=== PATIENT | male | born 1955 | race Caucasian/White ===

== ENCOUNTER 2017-08-20 09:33 | Emergency (ER) | payer BC ==
[2017-08-20 10:09] VITALS: BP 147/76
--- NOTE | 2017-08-20 10:29 | UC ---
Skin Complaint HPI - HPI Summary HPI Summary: 61 yo male noted tick on neck this am may have been attached 36 hours - History of Current Complaint Chief Complaint: UCSkin Time Seen by Provider: 08/20/17 10:16 Stated Complaint: TICK Hx Obtained From: Patient Onset/Duration: Sudden Onset Timing: Constant Onset Severity: Mild Current Severity: None Pain Intensity: 0 Pain Scale Used: 0-10 Numeric Location: Other - left neck Character: Redness Alleviating Factor(s): Nothing Related History: Insect Bite/Sting - Allergy/Home Medications Allergies/Adverse Reactions: Allergies Allergy/AdvReac Type Severity Reaction Status Date / Time Benzodiazepines Allergy Anaphylatic Verified 08/20/17 10:04 Shock Home Medications: Home Medications Lenalidomide(NF) [Revlimid (NF)] 10 mg PO DAILY 08/20/17 [History Confirmed ] Review of Systems Constitutional: Negative Skin: Negative Eyes: Negative ENT: Negative Respiratory: Negative Cardiovascular: Negative Gastrointestinal: Negative Genitourinary: Negative Motor: Negative Neurovascular: Negative Musculoskeletal: Negative Neurological: Negative Psychological: Negative Is Patient Immunocompromised?: No All Other Systems Reviewed And Are Negative: Yes PMH/Surg Hx/FS Hx/Imm Hx Previously Healthy: No - multiple myeloma - Surgical History Surgical History: Yes Surgery Procedure, Year, and Place: eye surgery age 2 CORRECTIVE SX - Family History Known Family History: Positive: Hypertension - Social History Alcohol Use: Occasionally Substance Use Type: None Smoking Status (MU): Never Smoked Tobacco Have You Smoked in the Last Year: No - Immunization History Most Recent Tetanus Shot: not sure Physical Exam Triage Information Reviewed: Yes Appearance: Well-Appearing, No Pain Distress, Well-Nourished Vital Signs: Initial Vital Signs Temp 98.0 F 08/20/17 10:06 Pulse 51 08/20/17 10:06 Resp 16 08/20/17 10:06 BP 147/76 08/20/17 10:06 Pulse Ox 100 08/20/17 10:06 Vital Signs Reviewed: Yes Eyes: Positive: Conjunctiva Clear ENT: Negative: Hearing grossly normal, Nasal congestion, Nasal drainage, Tonsillar exudate, Trismus, Muffled/hoarse voice Neck: Positive: Supple, Nontender, No Lymphadenopathy Respiratory: Positive: Lungs clear, Normal breath sounds, No respiratory distress Cardiovascular: Positive: RRR, No Murmur Skin Exam: Other - see image Course/Dx - Course Course Of Treatment: tick removed in toto with tick twister - Diagnoses Provider Diagnoses: tick removal Discharge - Discharge Plan Condition: Stable Disposition: HOME Prescriptions: DOXYcycline CAP(*) [DOXYcycline 100MG CAP(*)] 200 mg PO DAILY #2 cap Patient Education Materials: Tick Bite (ED) Referrals: Alivia Segovia MOLD SWABBER [Primary Care Provider] - If Needed Additional Instructions: take two doxy today with lunch call fro any questions return for any problems Images Head: 1 - tick
== END 2017-08-20 10:29 | disposition home or self-care (01) ==
LOC: UCEAST 09:33
DX: S10.96XA Insect bite of unspecified part of neck, initial encounter (principal); W57.XXXA Bitten or stung by nonvenomous insect and other nonvenomous arthropods, initial encounter; Y92.9 Unspecified place or not applicable; C90.00 Multiple myeloma not having achieved remission
CPT/HCPCS: 99212; G0463

== ENCOUNTER 2019-01-06 17:12 | Inpatient (IN) | payer MEDICARE ==
[2019-01-06] MEDS ORDERED: LORazepam INJ* 2 MG/ML 1 ML VIAL IV PUSH PRN (17:19)
[2019-01-06] MEDS ORDERED: Morphine INJ* 2 MG/ML 1 ML SYRINGE (TWO MG - NEW SYRINGE VERSION) IV PRN (17:19)
[2019-01-06] MEDS ORDERED: Ondansetron INJ* 2 MG/ML VIAL IV PRN (17:19)
[2019-01-06] MEDS ORDERED: Acetaminophen TAB* 325 MG PO PRN (17:19)
[2019-01-06] MEDS ORDERED: Hyoscyamine TAB* 0.125 MG PO PRN ×2 (17:23→17:53)
[2019-01-06] MEDS ORDERED: NS 0.9% 1000 ML** 1,000 ML IV SCH (17:30)
[2019-01-06] MEDS: Pantoprazole IV* 40 MG IV SCH (19:49)
[2019-01-06] MEDS ORDERED: Morphine VIAL* 4 MG/ML VIAL (1 ml vial) IV PRN (20:20)
[2019-01-06] MEDS: Enoxaparin(*) 40 MG/0.4 ML SYR SUBCUT SCH (22:18)
[2019-01-06] MEDS: Acyclovir* 400 MG TAB PO SCH (22:18)
[2019-01-06] MEDS ORDERED: Ibuprofen TAB* 400 MG PO PRN (22:25)
[2019-01-06] MEDS ORDERED: diPHENhydraMINE IV* 50 MG/ML 1 ml VIAL (BENADRYL) IV ONE (22:25)
[2019-01-06] MEDS ORDERED: Ibuprofen TAB* 400 MG ONE (22:54)
[2019-01-07] MEDS: HYDROmorphone INJ1* 1 MG/ML SYRINGE IV PRN ×4 (00:26→09:00)
[2019-01-07] MEDS: Cholecalciferol TAB* 1000 UNITS PO SCH (07:12)
[2019-01-07] MEDS: Acyclovir* 400 MG TAB PO SCH (07:12)
[2019-01-07] MEDS: Aspirin 81 mg CHEW TAB* 81 MG TAB.CHEW PO SCH (07:12)
[2019-01-07 08:22] LABS: Hematocrit 34 % (42-52); Hemoglobin 11.4 g/dl (14.0-18.0); Mean Corpuscular HGB Conc 34 g/dl (31-36); Mean Corpuscular Hemoglobin 32 pg (27-31); Mean Corpuscular Volume 96 fL (80-94); Red Blood Count 3.53 10^6/ul (4.00-5.40); Red Cell Distribution Width 15 % (10.5-15); White Blood Count 1.1 10^3/ul (3.5-10.8)
[2019-01-07 08:29] LABS: Albumin 3.9 g/dL (3.2-5.2); Albumin/Globulin Ratio 1.4 (1-3); BUN/Creatinine Ratio 14.9 (8-20); Calcium 8.4 mg/dL (8.6-10.3); EGFR African American 106.6 (>60); EGFR Non-African American 88.1 (>60); Globulin 2.7 g/dL (2-4); Potassium 3.9 mmol/L (3.5-5.0); Total Bilirubin 0.8 mg/dL (0.2-1.0); Total Protein 6.6 g/dL (6.4-8.9)
--- NOTE | 2019-01-07 08:42 | PN ---
Progress Note - Progress Note Date of Service: 01/07/19 SOAP: Subjective: []Developed acute RUQ abdominal pain and epigastric pain 3/. Pain sever, constant but variable. Can be helped by correct possition but movment does not make better or worse. Has had nausea and not eating. Did eat some oats 3 days ago and pain did not get worse. No vomiting. Pain does not radiate, has had mild back pain that is chronic. See in clinc on 01/06. US of Abd negative, LFTs with mild increase in AST, otherwise negative, normal amylase and lipase. Developed diffuse rash last night. Trunk > Ext, puritic. Acetaminophen (Tylenol Tab*) 650 mg PO Q4H PRN PRN Reason: PAIN OR TEMPERATURE Acyclovir (Zovirax Tab*) 400 mg PO BID [facility] Last Admin: 01/07/19 07:12 Dose: 400 mg Aspirin (Aspirin 81 Mg Chew Tab*) 81 mg PO DAILY [facility] Last Admin: 01/07/19 07:12 Dose: 81 mg Cholecalciferol (Vitamin D Tab*) 5,000 units PO DAILY [facility] Last Admin: 01/07/19 07:12 Dose: 5,000 units Enoxaparin Sodium (Lovenox(*)) 40 mg SUBCUT Q24H [facility] Last Admin: 01/06/19 22:18 Dose: 40 mg Hydromorphone HCl (Dilaudid Inj1s*) 1 mg IV Q1H PRN PRN Reason: PAIN Last Admin: 01/07/19 07:12 Dose: 1 mg Hyoscyamine (Anaspaz Tab*) 0.125 mg PO Q4H PRN PRN Reason: abd. spasms/cramping Last Admin: 01/07/19 00:27 Dose: 0.125 mg Sodium Chloride (Ns 0.9% 1000 Ml) 1,000 mls @ 100 mls/hr IV PER RATE [facility] Last Admin: 01/07/19 01:04 Dose: 100 mls/hr Ibuprofen (Motrin Tab*) 400 mg PO Q6H PRN PRN Reason: PAIN Last Admin: 01/06/19 23:10 Dose: 400 mg Morphine Sulfate (Morphine Inj ((Syringe))*) 2 mg IV Q2H PRN PRN Reason: PAIN Last Admin: 01/06/19 19:48 Dose: 2 mg Morphine Sulfate (Morphine Vial*) 3 mg IV Q1H PRN PRN Reason: PAIN Last Admin: 01/06/19 22:13 Dose: 3 mg Ondansetron HCl (Zofran Inj*) 4 mg IV Q4H PRN PRN Reason: NAUSEA Pantoprazole Sodium (Protonix Iv*) 40 mg IV Q24H [facility] Last Admin: 01/06/19 19:49 Dose: 40 mg Objective: [] Vital Signs Temp Pulse Resp BP Pulse Ox 98.3 F 49 18 146/65 100 01/07/19 02:22 01/07/19 02:22 01/07/19 07:12 01/07/19 02:22 01/07/19 02:22 HEENT: OM moist and no lesions Skin: diffuse paullar rash trunk, sparing OM, hands and feet. Puritic. CTA RRR S1S2 Has pain to deep palpation RUQ and epigastric, No HSM. + BS Ext - No C/C/E AST 57, WBC 1.1, diff pending Assessment: []63 year old with MM on maintenance Revlimid with acute abdominal pain, epigastric to RUQ and now a rash. He is a-fibrile and evaluation negative for significant disease in GB, liver or pancreas. Ddx: acute gastritis or ulcer, naturopathic from spinal stenosis or fracture not seen on CT scan, viral illness with rash and pain preceding hepatitis, does not appear to be shingles. Ddx for rash aside from pain is drug rash, viral. Plan: []1. Pain. Responding to dilaudid, will change to PO 8 mg po q 4 hrs from IV and for now continue Tylenol and Motrin. If EGD negative then MRI of spine. 2. Consult GI for EGD, if negative can try Toradol for pain and NSAIDS. Follow LFTs daily and re-check lipase tomorrow. 3. Rash. Follow and if worsens will need to stop Dilaudid as well, has tolerated oxycodone in the past. Can consider Bx if viral illness suspected. 4. Hold therapy MM.
[2019-01-07] MEDS ORDERED: diPHENhydraMINE PO* 25 MG PO PRN (08:56)
[2019-01-07 09:40] LABS: ABS Basophils 0 10^3/ul (0-0.2); ABS Eosinophils 0 10^3/ul (0-0.6); ABS Lymphocytes 0.2 10^3/ul (1.0-4.8); ABS Monocytes 0.2 10^3/ul (0-0.8); ABS Neutrophils 0.7 10^3/ul (1.5-7.7); ABS Nucleated RBC 0 10^3/ul; Eosinophil % 1.6 %; Nucleated Red Blood Cells % 0.4
[2019-01-07 10:01] LABS: Mean Platelet Volume 8.1 fL (7.4-10.4); Platelet Count 58 10^3/ul (150-450)
[2019-01-07] MEDS: HYDROmorphone TAB* 4 MG PO PRN ×2 (10:01→12:31)
[2019-01-07] MEDS ORDERED: EPINEPHRINE 1 MG/ML 1 ML VIAL IM PRN (13:26)
[2019-01-07] MEDS ORDERED: Midazolam* 1 MG/ML 2 ML VIAL (2 MG) IV SLOW PU ONE (13:26)
[2019-01-07] MEDS ORDERED: diPHENhydraMINE IV* 25 MG in NS 0.9% 50 ML* 50 ML IVPB ONE (13:30)
[2019-01-07] MEDS ORDERED: diPHENhydraMINE IV* 50 MG/ML 1 ml VIAL (BENADRYL) IV ONE (14:00)
--- NOTE | 2019-01-07 14:19 | CONS ---
GASTROENTEROLOGY CONSULT: DATE: 01/07/19 CONSULTING PHYSICIAN: Daisy Casillas. REASON FOR CONSULTATION: Epigastric and right upper quadrant pain beginning 3 days ago with nondiagnostic CT and ultrasound. HISTORY: This 63-year-old man, on daily maintenance Revlimid for multiple myeloma after a bone marrow transplant performed in 2017, was admitted with intractable right upper quadrant pain yesterday from the oncology office. He is a difficult historian, skipping around frequently in the history to associated thoughts to a question without having fully addressed the question. He observes initially that he has been burping for a number of weeks several times a day. He denied acid indigestion per se and was not taking Tums or Rolaids or any other [id number] anti-peptic aid. He has never been treated for such. He has never had an upper endoscopy. He recalls he fell on 12/30/18, and hurt his left posterior ribs. He said it was not very severe and he was not taking any ibuprofen, but he did see a chiropractor. He says he cannot recall whether he played tennis per his usual pattern the rest that week - tennis games 2 to 4 times a week. His recollection is that on 01/03/19, he was in his usual health, eating normally, and had normal bowel movements. The same was true 01/04/19. He does recall that his 12 to 14 supplements seemed to just "sit there like a rock" when he took them Sunday. He has been on same number of supplements for quite some time. He had a bagel Sunday. He just was not feeling well in the evening and a friend recommended he take some Gas-X. He is not sure if he took any ibuprofen and indeed questions trying to pin that down, never accomplished that. He had essentially nothing to eat 01/05/19, after a restless night. In the evening of 01/05/19, he took some oxycodone. He tried to make himself vomit. There was no fever. There was no diarrhea. He came to the [facility] yesterday and was admitted. He is kind of restless trying to find a good position. Different positions do seem to satisfy him temporarily. He says that deep breathing hurts somewhat, but there has been no particular cough or pleurisy reproducibly. Again, he says he has never been evaluated for a peptic process. PAST MEDICAL HISTORY: 1. Multiple myeloma with multiple bony lesions. 2. Pancytopenia. 3. Multiple supplements - this includes aspirin 81 mg started in late 2015. MEDICATIONS: As an outpatient: 1. Aspirin 81 mg. 2. Magnesium capsule frequently. 3. Revlimid 10 mg. 4. Vitamin B12. 5. Oxycodone and OxyContin p.r.n. 6. Ibuprofen 200 mg 1 to 2 tablets p.r.n. q.6 hours, frequency not established. 7. Seven or eight other dietary supplements. SOCIAL HISTORY: He is single, worked as a massage therapist, but has not been doing that much recently. REVIEW OF SYSTEMS: No history of seizure, syncope, palpitations, MS, valvular disease, congestive failure, TB, hemoptysis, hepatitis, jaundice. Couple of years ago, he was suffering from depression and [facility] and was given lorazepam, strength uncertain and he recalls taking a half tablet and within minutes, he was afflicted by shortness of breath. He refers to this as "anaphylactic shock." He was severely short of breath for about an hour and then affected for a few days. He did not seek any attention stating he could not have driven. He did not call 911. Ever since, he has referred to this as anaphylactic shock and it has entered the record as an allergy. He had a colonoscopy [place] [address] Snider using Versed 5 mg and fentanyl 50 mcg with no difficulty whatsoever. He is a lifetime nonsmoker. PHYSICAL EXAM: He is a slender, anxious-appearing man, somewhat restless, seeking a position in bed for comfort. HEENT exam is remarkable only for several days' growth of jolley. He is anicteric. Mucous membranes are normal. He has no adenopathy. Breath sounds are diminished as he has some voluntary inhibition. Heart sounds are regular. When positioned flat (after a considerable wrestle since maneuvering), the abdomen is of average contour, symmetric, with normal bowel sounds in all 4 quadrants. The abdomen is nontender, although he is wincing, jumping, lying and then saying "that wasn't that bad." Rectal: Deferred. Extremities show no edema. He has been afebrile. LABS: White count 1.4 yesterday, LFTs normal, albumin 4.1. Electrolytes normal. BUN 12, creatinine 1.01. RADIOLOGY REVIEW: CT scan shows fairly enlarged gallbladder without thickening , splenic lesions, no fluid in the abdomen and no adenopathy. IMPRESSION: This 63-year-old man with multiple myeloma, on chronic oral chemo, complains of a right upper quadrant to back area pain that seems in some ways mechanical, although he has been inhibited from eating and there has been a lot of burping over several weeks. His NSAID use may be considerable. Upper endoscopy could be helpful looking at the EG junction or peripyloric area. His history of a benzodiazepine reaction is very atypical and would be most compatible with a panic attack, though under the current circumstances, initiating a process where bronchoconstriction could be present would be highly disruptive to his care. Anesthesia assistance will be requested. Addendum: further discussion with his primary team - will try a test dose of Versed [id number]/[facility] #: [id number] MTDD
[2019-01-07] MEDS ORDERED: Midazolam* 1 MG/ML 5 ML VIAL (5 MG) ONE (14:20)
[2019-01-07] MEDS ORDERED: fentaNYL* 50 MCG/ML 2 ML VIAL (100 MCG VIAL) ONE (14:20)
[2019-01-07] MEDS: Acetaminophen TAB* 325 MG PO PRN (16:13)
--- NOTE | 2019-01-07 17:11 | PN ---
Progress Note - Progress Note Date of Service: 01/07/19 SOAP: PM FOLLOW UP NOTE Events: - EGD mild gastritis, not cause of pain per GI - Fever to 103.0 at EGD, rash increased Subjective: []Feels better. Pain has been getting better. Acetaminophen (Tylenol Tab*) 650 mg PO Q4H PRN PRN Reason: PAIN OR TEMPERATURE Last Admin: 01/07/19 16:13 Dose: 650 mg Acyclovir (Zovirax Tab*) 400 mg PO BID [facility] Last Admin: 01/07/19 07:12 Dose: 400 mg Aspirin (Aspirin 81 Mg Chew Tab*) 81 mg PO DAILY [facility] Last Admin: 01/07/19 07:12 Dose: 81 mg Cholecalciferol (Vitamin D Tab*) 5,000 units PO DAILY [facility] Last Admin: 01/07/19 07:12 Dose: 5,000 units Diphenhydramine HCl (Benadryl Po*) 25 mg PO Q6H PRN PRN Reason: ITCHING Enoxaparin Sodium (Lovenox(*)) 40 mg SUBCUT Q24H [facility] Last Admin: 01/06/19 22:18 Dose: 40 mg Hydromorphone HCl (Dilaudid Inj1s*) 1 mg IV Q1H PRN PRN Reason: PAIN Last Admin: 01/07/19 09:00 Dose: 1 mg Hydromorphone HCl (Dilaudid Tab*) 4 mg PO Q2H PRN PRN Reason: PAIN Last Admin: 01/07/19 12:31 Dose: 4 mg Hyoscyamine (Anaspaz Tab*) 0.125 mg PO Q4H PRN PRN Reason: abd. spasms/cramping Last Admin: 01/07/19 00:27 Dose: 0.125 mg Sodium Chloride (Ns 0.9% 1000 Ml) 1,000 mls @ 100 mls/hr IV PER RATE [facility] Last Admin: 01/07/19 01:04 Dose: 100 mls/hr Ibuprofen (Motrin Tab*) 400 mg PO Q6H PRN PRN Reason: PAIN Last Admin: 01/06/19 23:10 Dose: 400 mg Ketorolac Tromethamine (Toradol Inj*) 15 mg IV PUSH Q6H PRN PRN Reason: PAIN Morphine Sulfate (Morphine Inj ((Syringe))*) 2 mg IV Q2H PRN PRN Reason: PAIN Last Admin: 01/06/19 19:48 Dose: 2 mg Ondansetron HCl (Zofran Inj*) 4 mg IV Q4H PRN PRN Reason: NAUSEA Pantoprazole Sodium (Protonix Iv*) 40 mg IV Q24H [facility] Last Admin: 01/06/19 19:49 Dose: 40 mg Objective: [] Vital Signs Temp Pulse Resp BP Pulse Ox 98.4 F 64 16 163/65 100 01/07/19 11:18 01/07/19 11:26 01/07/19 12:34 01/07/19 11:26 01/07/19 11:18 Rash progressive, lesions on neck and through scalp. Assessment: []Progressive rash and fever. Ddx remains infection vs drug reaction, favoring the former. Pain may have been transient GB obstruction. Plan: []1. Will seed BC x 2 2. Could be HSV, will start Valtrex 100 mg po bid and stop Acyclovir. 3. Consult GI in am 4. D/c all narcotics, Toradol for pain and continued IV PPI. 5. Regular diet and D/C IVF
[2019-01-07] MEDS ORDERED: Ketorolac INJ* 15 MG/ML 1 ML VIAL IV PUSH PRN (17:12)
[2019-01-07] MEDS: Ketorolac INJ* 15 MG/ML 1 ML VIAL IV PUSH PRN (17:38)
[2019-01-07] MEDS: Pantoprazole IV* 40 MG IV SCH (17:39)
[2019-01-07] MEDS: Enoxaparin(*) 40 MG/0.4 ML SYR SUBCUT SCH (17:39)
[2019-01-07] MEDS: oxyCODONE TAB* 5 MG TAB PO PRN ×2 (19:01→23:08)
[2019-01-08] MEDS: oxyCODONE TAB* 5 MG TAB PO PRN ×4 (03:15→17:34)
[2019-01-08] MEDS: Acetaminophen TAB* 325 MG PO PRN (03:36)
--- NOTE | 2019-01-08 03:38 | PRO ---
DATE: 01/07/19 - ROOM #404 REFERRING PHYSICIAN: Dr. Daisy Anna; Dr. Ward Allen. * PROCEDURE: Upper gastrointestinal endoscopy and biopsy, distal esophageal erosion at 39 cm, and CLOtest, gastric body. INDICATION: This 63-year-old man complains of right upper quadrant pain for the last 2 days. He became anorectic. He tried to make himself vomit wondering if that would help but it did not. He had not had any fever until this afternoon, when he went to a 103.5. He has not had prior acid peptic disease. See separate consultation. Multiple conversations were held with his nurse on the floor, Dr. Allen and Endo staff, related to his initially reporting that he had anaphylactic shock with the benzodiazepine. Since this had been a reaction to an oral dose of an antianxiety medicine prescribed by the [facility], and he had just 2 years before had a standard conscious sedation experience for colonoscopy, seemed unlikely. Nonetheless, the risks of major event seemed enough reason to pause and reevaluate the indication. With increasing fever and a spreading rash, clarifying information with an upper endoscopy was judged to be worth it. ENDOSCOPIST: Dr. Henley. MEDICATIONS: Midazolam 3 in small increments and fentanyl 75. FINDINGS: He was positioned left side down. He had a morbilliform rash minimally palpable over the abdomen, trunk, back, neck, face and scalp. There was no oozing. Sequential doses of medications starting at 0.25 mg midazolam then a 0.50 mg repeated several times were used and he sedated quite nicely. There were no ill effects. EGD: Larynx - appears normal, although there was a minimal small light patch of exudate near the cricopharyngeus. There was no erythema. It appeared consistent with maybe minimal . Esophagus - easily entered. The mucosa is normal from 17 to the upper, mid and lower esophagus. There was a small erosion with a white exudate at around 39 to 40 at a 2 o'clock orientation. It appeared consistent with a caustic vocal injury, fairly minimal. It was not a generalized esophagitis of any typical sort. There was no hiatal hernia, no fundic prolapse. The erosion was biopsied x2. Stomach - some minimal wispy bleeding points in the high gastric body, posterior wall. A few minimal fundic gland appearing polyps. Gastric cardia, fundus and body otherwise appeared normal. The rugal pattern was normal. The antrum was normal except in the prepyloric area where there was some granular erythema and swelling and a small focal ulcer at 11 o'clock orientation about 2 to 3 cm from the pylorus. A slightly broader but similar appearing ulcer was seen at 2 o'clock orientation. A CLOtest was taken, gastric body. Duodenum - the pylorus itself, bulb and second through fourth portions appeared normal. IMPRESSION: 1. Prepyloric ulcers - small, consistent with his ibuprofen use for tennis and headaches, etc. These were small, would not be expected to resolve in his clinical presentation of agonizing intractable pain. 2. Minimal gastric body gastritis - nonspecific probably related to multiple meds. 3. Esophageal erosion - small possibly related to transient nonpassage of a medication. This also does not appear opportunistic or potentially responsible for his dramatic clinical presentation. 4. Generalized upper body rash - its worsening nature over the day has been communicated to his primary team. [id number]/[facility] #: [id number] IZABELA
[2019-01-08 05:32] LABS: ABS Basophils 0 10^3/ul (0-0.2); ABS Eosinophils 0 10^3/ul (0-0.6); ABS Lymphocytes 0.3 10^3/ul (1.0-4.8); ABS Monocytes 0.2 10^3/ul (0-0.8); ABS Neutrophils 0.6 10^3/ul (1.5-7.7); ABS Nucleated RBC 0 10^3/ul; Eosinophil % 0.3 %; Hematocrit 30 % (42-52); Hemoglobin 10.1 g/dl (14.0-18.0); Lymphocyte % 25.6 %; Mean Corpuscular HGB Conc 34 g/dl (31-36); Mean Corpuscular Hemoglobin 32 pg (27-31); Mean Corpuscular Volume 94 fL (80-94); Mean Platelet Volume 8.2 fL (7.4-10.4); Nucleated Red Blood Cells % 0.6; Platelet Count 50 10^3/ul (150-450); Red Blood Count 3.16 10^6/ul (4.00-5.40); Red Cell Distribution Width 15 % (10.5-15); White Blood Count 1.1 10^3/ul (3.5-10.8)
[2019-01-08 05:43] LABS: Albumin 3.1 g/dL (3.2-5.2); Albumin/Globulin Ratio 1.3 (1-3); BUN/Creatinine Ratio 15.2 (8-20); Calcium 7.7 mg/dL (8.6-10.3); EGFR African American 99.9 (>60); EGFR Non-African American 82.6 (>60); Globulin 2.3 g/dL (2-4); Magnesium 1.8 mg/dL (1.9-2.7); Potassium 3.3 mmol/L (3.5-5.0); Total Bilirubin 0.5 mg/dL (0.2-1.0); Total Protein 5.4 g/dL (6.4-8.9)
[2019-01-08] MEDS: Aspirin 81 mg CHEW TAB* 81 MG TAB.CHEW PO SCH (07:10)
[2019-01-08] MEDS: Cholecalciferol TAB* 1000 UNITS PO SCH (07:10)
[2019-01-08] MEDS: Ketorolac INJ* 15 MG/ML 1 ML VIAL IV PUSH PRN (08:52)
[2019-01-08] MEDS ORDERED: Potassium Chlor TAB* 20 MEQ TAB.ER PO ONE (11:03)
[2019-01-08] MEDS ORDERED: Gadoteridol* (CONTRAST) 279.3 MG/ML 10 ML IV ONE (16:22)
[2019-01-08] MEDS: Pantoprazole IV* 40 MG IV SCH (17:29)
[2019-01-09] MEDS: oxyCODONE TAB* 5 MG TAB PO PRN ×3 (01:20→11:05)
[2019-01-09] MEDS: Cholecalciferol TAB* 1000 UNITS PO SCH (07:35)
[2019-01-09] MEDS: Aspirin 81 mg CHEW TAB* 81 MG TAB.CHEW PO SCH (07:35)
[2019-01-09 08:48] LABS: Hematocrit 31 % (42-52); Hemoglobin 10.3 g/dl (14.0-18.0); Mean Corpuscular HGB Conc 34 g/dl (31-36); Mean Corpuscular Hemoglobin 32 pg (27-31); Mean Corpuscular Volume 95 fL (80-94); Mean Platelet Volume 8.3 fL (7.4-10.4); Platelet Count 54 10^3/ul (150-450); Red Blood Count 3.25 10^6/ul (4.00-5.40); Red Cell Distribution Width 15 % (10.5-15); White Blood Count 1.9 10^3/ul (3.5-10.8)
[2019-01-09 09:11] LABS: BUN/Creatinine Ratio 12.9 (8-20); Calcium 8.1 mg/dL (8.6-10.3); EGFR African American 109.5 (>60); EGFR Non-African American 90.5 (>60); Potassium 3.7 mmol/L (3.5-5.0)
[2019-01-09 10:00] LABS: Lymphocytes % 18 %; Monocytes % 26 %; Neutrophil % 51 %
[2019-01-09 10:01] LABS: Immature Granulocytes 2 % (0-9); Variant Lymph % 2 % (0-6)
[2019-01-09 10:03] LABS: ABS Eosinophils 0.02 10^3/ul (0-0.6)
[2019-01-09 11:18] VITALS: BP 118/70
--- NOTE | 2019-01-09 12:58 | DS ---
- Discharge Summary Admission Date: 01/06/19 Discharge Date: 01/09/19 Discharge Date: 1. Right upper quadrant pain: controlled at this time, however source remains unclear, further work-up to occur as outpatient 2. Myeloma: stable lytic lesions on MRI, light chains drawn, counts appear to have improved so will hold on bone marrow biopsy for now Discharge Medications: Medication Instructions Recorded Confirmed Type Acyclovir* [Zovirax 400 MG TAB*] 400 mg PO BID 06/06/16 01/06/19 History Aspirin 81 mg CHEW TAB* 81 mg PO DAILY 01/06/19 01/06/19 History Astragalus Root 1 gm MC DAILY 01/06/19 01/06/19 History Cholecalciferol (Vitamin D3) 5,000 unit PO DAILY 01/06/19 01/06/19 History [Vitamin D3] Docosahexanoic Acid [Dha] 100 mg PO DAILY 01/06/19 01/06/19 History Glutathione 1 gm MC DAILY 01/06/19 01/06/19 History Magnesium Oxide [Magnesium] 400 mg PO DAILY 01/06/19 01/06/19 History Prochlorperazine TAB* [Compazine 10 mg PO Q6H PRN 01/06/19 01/06/19 History Tab*] Acetaminophen TAB* [Tylenol TAB*] 650 mg PO Q4H PRN #0 tab 01/09/19 Rx Acetylcysteine [Nac] 600 mg PO SEE INSTRUCTIONS #0 01/09/19 01/06/19 Rx Hyoscyamine TAB* [Anaspaz 0.125 MG 0.125 mg PO Q4H PRN #18 tab 01/09/19 Rx TAB*] Ibuprofen TAB* [Advil TAB*] 200 mg PO Q6H PRN #0 01/09/19 01/06/19 Rx Lenalidomide [Revlimid] 10 mg PO DAILY #28 capsule 01/09/19 History Omeprazole 40 mg PO DAILY #30 capsule. 01/09/19 Rx Ondansetron TAB* [Zofran 4 MG Tab*] 4 mg PO Q4HR PRN #0 01/09/19 01/06/19 Rx diPHENhydraMINE PO* [Benadryl PO 25 mg PO Q6H PRN tab 01/09/19 Rx 25 MG TAB*] oxyCODONE TAB* [Roxycodone TAB 5 10 mg PO Q3H PRN #80 tab MDD 16 01/09/19 Rx mg*] tabs Hospital Course: Please see admission note for full H&P, however briefly, Mr. 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 He has been on maintenance Revlimid since 06/2017 in very good health. Mr. Staley presented to the office on 01/06/19 complaining of progressive and severe RUQ abd. pain. He had poor PO intake and was evaluated with CT abd/pelvis. This revealed an elarged gallbladder without wall thickening, or bile duct enlargement. Surgical consultation over the phone was obtained and an US was recommened. RUQ US revealed gallbladder cysts without evidence for infection and a prominent pancreatic duct. Mr. Staley was neutropenic and while he did experience and isolated fever at home he did not appear toxic, however his pain was not controlled and therefore he was admitted to the hospital for observation with bowel rest. The AM he developed a rash that was felt related to IV morphine, this was d/c'd and he was given IV dilaudid. On 01/07 his pain remained poorly controlled and GI was consulted for EGD, this was performed that day and this revealed only mild gastritis. His rash become more severe and the dilaudid was discontinued and replaced of IV Toradol. A HIDA scan was ordered, this was performed on 01/08 and revealed a normal gallbladder. Due to his location of pain and known prior lytic lesions MRI of the T and L spine were obtained, while these revealed lytic lesions they are not new and very consistent with known lesions. Light chains and protein electrophoresis were obtained and are pending. His counts have recovered with ANC now 1000, however discussion of possible bone marrow biopsy as an outpatient was had. During his admission he had a fever 01/07 and in the early AM 01/08, though without evidence for infection and no antibiotics were given. He continues to state besides the spastic right upper quadrant pain (which has improved) he feels normal. Today his pain appears mostly controlled with oral oxycodone and he has tolerated PO intake. He is anxious to go home and with improvement in counts and improved pain control he will be discharged home. He is stable at the time of discharge. He will resume normal activities and a regular diet with no restrictions. Mr. Staley will follow-up with Dr. Hendricks on 01/21 and will contact his transplant doctor in [place], Dr. Angel, for follow-up at his convenience. >40 min spent with >50% face to face counseling
[2019-01-09] MEDS: Ketorolac INJ* 15 MG/ML 1 ML VIAL IV PUSH PRN (13:09)
[2019-01-10 21:23] LABS: Lambda Free Light Chain 1.38 mg/dL
[2019-01-13 09:20] LABS: Albumin 2.8 g/dL (3.4-4.7); Albumin/Globulin Ratio 1.04; Gamma Globulin 0.8 g/dL (0.6-1.6); Total Protein(PEP) 5.4 g/dL (6.3 - 7.9)
== END 2019-01-09 13:45 | disposition home or self-care (01) | DRG 392 ==
LOC: MED 17:43 → OBSVTOIN 01-07 17:51
PROVIDERS: ADMIT Internal Medicine Hematology & Oncology; ATTEND Internal Medicine Hematology & Oncology
PROC: 0DD68ZX Extraction of Stomach, Via Natural or Artificial Opening Endoscopic, Diagnostic (ICD-10-PCS; principal; 2019-01-07)
DX: R10.11 Right upper quadrant pain (principal); C90.00 Multiple myeloma not having achieved remission; D61.818 Other pancytopenia; Z94.81 Bone marrow transplant status; K22.10 Ulcer of esophagus without bleeding; L27.1 Localized skin eruption due to drugs and medicaments taken internally; T40.2X5A Adverse effect of other opioids, initial encounter; Y92.230 Patient room in hospital as the place of occurrence of the external cause; K29.70 Gastritis, unspecified, without bleeding; K25.9 Gastric ulcer, unspecified as acute or chronic, without hemorrhage or perforation; T39.315A Adverse effect of propionic acid derivatives, initial encounter; Y92.009 Unspecified place in unspecified non-institutional (private) residence as the place of occurrence of the external cause; Z88.8 Allergy status to other drugs, medicaments and biological substances; Z79.1 Long term (current) use of non-steroidal anti-inflammatories (NSAID); Z79.82 Long term (current) use of aspirin; Z79.891 Long term (current) use of opiate analgesic; Z79.899 Other long term (current) drug therapy
CPT/HCPCS: 36415; 72157; 72158; 78226; 80048; 80053; 82272; 83735; 83883; 84155; 84165; 85025; 85060; 87040; 87077; 88305; 99156; 99157; 99219; 99233; 99239; A9270-GY; A9537; A9579; G0378; J1170; J1200; J1650; J1885; J2250; J2270; J3010

== ENCOUNTER 2019-10-07 16:24 | Inpatient (IN) | payer MEDICARE ==
[2019-10-07] MEDS ORDERED: Piperacillin/Tazobac ADVAN(*) 3.375 GM in NS 0.9% 100 ML* 100 ML IVPB ONE ×2 (16:45→22:00)
[2019-10-07] MEDS ORDERED: oxyCODONE TAB* 5 MG TAB PO PRN (16:56)
[2019-10-07] MEDS ORDERED: Prochlorperazine TAB* 10 MG PO PRN (16:56)
[2019-10-07] MEDS ORDERED: Ibuprofen TAB* 200 MG PO PRN (16:56)
[2019-10-07] MEDS ORDERED: Ondansetron TAB* 4 MG PO PRN (16:56)
[2019-10-07] MEDS ORDERED: GuaiFENesin DM 100 mg/10 mg in 5 ML UDC PO PRN (16:57)
[2019-10-07] MEDS ORDERED: Acetaminophen TAB* 325 MG PO PRN (16:57)
[2019-10-07] MEDS ORDERED: Zosyn per Pharmacy* NOTE FOLLOW UP SCH (17:00)
[2019-10-07] MEDS: Enoxaparin(*) 40 MG/0.4 ML SYR SUBCUT SCH (22:10)
[2019-10-07] MEDS: NS 0.9% w/ 40 Meq KCL 1000 ML* 1,000 ML IV SCH (22:29)
[2019-10-08] MEDS: ZOSYN 3.375 GM Q8H per EXTENDED INFUSION IVPB SCH ×6 (02:06→19:18)
[2019-10-08 08:47] LABS: ABS Lymphocytes 0.1 10^3/ul (1.0-4.8); ABS Monocytes 0.2 10^3/ul (0-0.8); ABS Neutrophils 2.1 10^3/ul (1.5-7.7); Hematocrit 29 % (42-52); Lymphocyte % 5.1 %; Mean Corpuscular HGB Conc 34 g/dL (31-36); Mean Corpuscular Hemoglobin 33 pg (27-31); Mean Corpuscular Volume 96 fL (80-94); Mean Platelet Volume 9.9 fL (7.4-10.4); Nucleated Red Blood Cells % 0.1; Platelet Count 82 10^3/uL (150-450); Red Blood Count 3.04 10^6 /uL (4.18-5.48); Red Cell Distribution Width 15 % (10-15); White Blood Count 2.4 10^3/uL (3.5-10.8)
[2019-10-08 09:02] LABS: Albumin 3.1 g/dL (3.2-5.2); Albumin/Globulin Ratio 1.1 (1-3); BUN/Creatinine Ratio 13.9 (8-20); Calcium 7.7 mg/dL (8.6-10.3); EGFR African American 53.5 (>60); EGFR Non-African American 44.2 (>60); Globulin 2.8 g/dL (2-4); Potassium 3.4 mmol/L (3.5-5.0); Total Bilirubin 1.5 mg/dL (0.2-1.0); Total Protein 5.9 g/dL (6.4-8.9)
[2019-10-08] MEDS: Cyanocobalamin TAB* 500 MCG PO SCH (10:15)
[2019-10-08] MEDS: Cholecalciferol TAB* 1000 UNITS PO SCH (10:15)
[2019-10-08] MEDS: NS 0.9% w/ 40 Meq KCL 1000 ML* 1,000 ML IV SCH ×2 (10:21→21:49)
[2019-10-08 10:39] LABS: Magnesium 1.5 mg/dL (1.9-2.7)
[2019-10-08] MEDS ORDERED: Magnesium Sulf 4 GM/100 ML IV* 4,000 MG/100 ML BAG IVPB ONE (16:31)
[2019-10-08] MEDS ORDERED: traZODone TAB* 50 MG TAB PO PRN (18:04)
--- NOTE | 2019-10-08 18:17 | PN ---
Progress Note - Progress Note Date of Service: 10/08/19 SOAP: Subjective: [Admitted yesterday with a PNA. He has intermittently been febrile overnight. Reports he continues to feel weak and coughing occasionally.] Objective: [ Vital Signs: Temp Pulse Resp BP Pulse Ox 99.4 F 80 24 132/66 96 10/08/19 14:35 10/08/19 14:35 10/08/19 14:35 10/08/19 14:35 10/08/19 14:35 Laboratory Results - last 24 hr 10/08/19 10/08/19 10/08/19 08:20 08:20 08:20 WBC 2.4 L RBC 3.04 L Hgb 10.0 L Hct 29 L MCV 96 H MCH 33 H MCHC 34 RDW 15 Plt Count 82 L MPV 9.9 Neut % (Auto) 87.0 Lymph % (Auto) 5.1 Pierce % (Auto) 6.5 Eos % (Auto) 1.0 Baso % (Auto) 0.4 Absolute Neuts (auto) 2.1 Absolute Lymphs (auto) 0.1 L Absolute Monos (auto) 0.2 Absolute Eos (auto) 0.0 Absolute Basos (auto) 0.0 Absolute Nucleated RBC 0.0 Nucleated RBC % 0.1 Sodium 134 L Potassium 3.4 L Chloride 102 Carbon Dioxide 22 Anion Gap 10 BUN 22 Creatinine 1.58 H Est GFR ( Amer) 53.5 Est GFR (Non-Af Amer) 44.2 BUN/Creatinine Ratio 13.9 Glucose 92 Lactic Acid 1.9 Calcium 7.7 L Magnesium 1.5 L Total Bilirubin 1.50 H AST 25 ALT 12 Alkaline Phosphatase 54 Total Protein 5.9 L Albumin 3.1 L Globulin 2.8 Albumin/Globulin Ratio 1.1 Acetaminophen (Tylenol Tab*) 650 mg PO Q6H PRN PRN Reason: fever Last Admin: 10/07/19 22:40 Dose: 650 mg Cholecalciferol (Vitamin D Tab*) 5,000 units PO DAILY MARTINE Last Admin: 10/08/19 10:15 Dose: 5,000 units Cyanocobalamin (Vitamin B12 Tab*) 1,000 mcg PO DAILY MARTINE Last Admin: 10/08/19 10:15 Dose: 1,000 mcg Enoxaparin Sodium (Lovenox(*)) 40 mg SUBCUT Q24H MARTINE Last Admin: 12/03/19 22:10 Dose: 40 mg Guaifenesin/Dextromethorphan (Robitussin Dm 100 Mg/10 Mg In 5 Ml) 10 ml PO Q6H PRN PRN Reason: COUGH Potassium Chloride/Sodium Chloride (Ns 0.9% W/ 40 Meq Kcl 1000 Ml*) 1,000 mls @ 100 mls/hr IV PER RATE [facility] Last Admin: 10/08/19 10:21 Dose: 100 mls/hr Piperacillin Sod/Tazobactam (Sod 3.375 gm/ Sodium Chloride) 100 mls @ 25 mls/ hr IVPB Q8H [facility] Last Admin: 10/08/19 10:15 Dose: 25 mls/hr Magnesium Sulfate (Magnesium Sulf 4 Gm/100 Ml Iv*) 4,000 mg in 100 mls @ 33.333 mls/hr IVPB ONCE ONE Stop: 10/08/19 19:30 Ibuprofen (Advil Tab*) 200 mg PO Q6H PRN PRN Reason: PAIN Ondansetron HCl (Zofran Tab*) 4 mg PO Q4HR PRN PRN Reason: NAUSEA Oxycodone HCl (Roxycodone Tab*) 5 mg PO Q6HR PRN PRN Reason: PAIN - MILD Pharmacy Consult (Zosyn Per Pharmacy*) 1 note FOLLOW UP .ZOSYN PER PHARMACY [facility] Prochlorperazine (Compazine Tab*) 10 mg PO Q6H PRN PRN Reason: NAUSEA Trazodone HCl (Desyrel Tab*) 50 mg PO BEDTIME PRN PRN Reason: INSOMNIA Exam: Gen: Mildly ill appearing, in NAD HEENT: MMM CV: RRR, no m/r/g Resp: few faint wheezes in RLL Abd: soft, nonTTP Ext: no edema] Assessment: [This is a 63 yo male with MM on maintenance revlimid who presented with c/o weakness found to have a dense LLL PNA. He continues to be intermittently febrile. ] Plan: [1. PNA - cont Zosyn - blood cultures negative at this time 2. MM - hold Revlimid until PNA resolved 3. Hypomagnesemia/hypokalemia - replete as needed Dispo: anticipate dc home in the next 1-2 d. Patient has threatened to leave AMA on a few occasions. Recommend that he stay until he is no longer febrile for a minimum of 12, but preferably 24 hours. He is agreeable to staying at this time.]
[2019-10-08] MEDS: Enoxaparin(*) 40 MG/0.4 ML SYR SUBCUT SCH (21:52)
[2019-10-09] MEDS: ZOSYN 3.375 GM Q8H per EXTENDED INFUSION IVPB SCH ×2 (01:46)
[2019-10-09 09:04] LABS: ABS Lymphocytes 0.1 10^3/ul (1.0-4.8); ABS Monocytes 0.2 10^3/ul (0-0.8); Eosinophil % 3.7 %; Hematocrit 26 % (42-52); Hemoglobin 8.7 g/dL (14.0-18.0); Lymphocyte % 7.9 %; Mean Corpuscular HGB Conc 34 g/dL (31-36); Mean Corpuscular Hemoglobin 33 pg (27-31); Mean Corpuscular Volume 96 fL (80-94); Mean Platelet Volume 10.6 fL (7.4-10.4); Platelet Count 70 10^3/uL (150-450); Red Blood Count 2.68 10^6 /uL (4.18-5.48); Red Cell Distribution Width 15 % (10-15); White Blood Count 1.3 10^3/uL (3.5-10.8)
[2019-10-09 09:34] LABS: Albumin 2.6 g/dL (3.2-5.2); Albumin/Globulin Ratio 0.9 (1-3); BUN/Creatinine Ratio 10.1 (8-20); Calcium 7.8 mg/dL (8.6-10.3); EGFR African American 62.6 (>60); EGFR Non-African American 51.7 (>60); Globulin 2.9 g/dL (2-4); Magnesium 2.2 mg/dL (1.9-2.7); Potassium 4.2 mmol/L (3.5-5.0); Total Bilirubin 1.3 mg/dL (0.2-1.0); Total Protein 5.5 g/dL (6.4-8.9)
[2019-10-09] MEDS: Cholecalciferol TAB* 1000 UNITS PO SCH (09:42)
[2019-10-09] MEDS: Cyanocobalamin TAB* 500 MCG PO SCH (09:42)
[2019-10-09 10:37] VITALS: BP 126/72
[2019-10-09] MEDS ORDERED: Zolpidem TAB* 5 MG PO PRN (11:46)
--- NOTE | 2019-10-09 15:48 | DS ---
CC: Dr. Anna * DISCHARGE SUMMARY: DATE OF ADMISSION: 10/07/19 DATE OF DISCHARGE: 10/09/19 PRIMARY CARE PROVIDER: Dr. Anna. PRIMARY ONCOLOGIST AND ATTENDING PHYSICIAN: Dr. Ross Hendricks.* (DICTATED BY TIERA CHÁVEZ) DISCHARGING PROVIDER: TIERA Chávez PRIMARY DISCHARGE DIAGNOSES: 1. Pneumonia. 2. Multiple myeloma, on maintenance Revlimid. 3. Pancytopenia, likely secondary to Revlimid. DISCHARGE MEDICATIONS: 1. Vitamin D3 5000 units p.o. daily. 2. Vitamin B12 1000 mcg p.o. daily. 3. DHA 100 mg p.o. daily. 4. Magnesium oxide 400 mg p.o. daily. 5. Oxycodone 5 mg p.o. q.6 hours as needed for pain. 6. Compazine 10 mg p.o. q.6 hours as needed for nausea or vomiting. 7. Ibuprofen 200 mg p.o. q.6 hours as needed for pain. 8. Revlimid 10 mg p.o. daily with recommendations to hold until pneumonia has completely resolved and he has been seen in followup in approximately 2 weeks. 9. Levaquin 500 mg p.o. daily for an additional 7 days. 10. Zofran 4 mg p.o. q.6 hours as needed for nausea or vomiting. HOSPITAL IMAGING: CT of the chest, 10/07/19, shows a dense consolidation of the left lower lobe. No evidence for PE. Multiple lytic lesions consistent with multiple myeloma and a stable splenic lesion. HOSPITAL COURSE: This is a 63-year-old male with multiple myeloma post transplant, on maintenance Revlimid who presented to the oncology clinic with complaints of weakness and falls, who underwent CT angiogram of the chest, which did not show a pulmonary embolism, but did show a dense left lower lobe consolidation. The patient was afebrile in the clinic, but had noted rise in creatinine from baseline as well as a mild rise in total bilirubin. The patient had significant change from his baseline performance status and recommended hospital admission for IV antibiotics. The patient was intermittently febrile for his first 24 hours of hospitalization. He is chronically pancytopenic. His total white blood cell count was 1300 at the time of discharge with platelets of 70,000. He was initially hypokalemic and hypomagnesemic, both of those were repleted and he received IV fluids with improvement in his creatinine prior to discharge. The patient was not hypoxic and strength improved throughout his hospital stay, continued to have a mild cough. DISPOSITION AND FOLLOWUP PLAN: The patient is being discharged to home in stable condition. Recommend completing an additional 7 days of Levaquin with follow up with Dr. Hendricks in approximately 2 weeks. Recommend that he holds his Revlimid for that period of time. TIERA CHÁVEZ [id number]/[facility] #: [id number]
== END 2019-10-09 12:50 | disposition home or self-care (01) | DRG 193 ==
LOC: MED 16:35 → OBSVTOIN 10-08 16:35
PROVIDERS: ADMIT Internal Medicine Hematology & Oncology; ATTEND Internal Medicine Hematology & Oncology
DX: J18.9 Pneumonia, unspecified organism (principal); D61.810 Antineoplastic chemotherapy induced pancytopenia; C90.00 Multiple myeloma not having achieved remission; E83.42 Hypomagnesemia; T45.1X5A Adverse effect of antineoplastic and immunosuppressive drugs, initial encounter; E87.1 Hypo-osmolality and hyponatremia; Z88.8 Allergy status to other drugs, medicaments and biological substances; Y92.9 Unspecified place or not applicable; Z79.899 Other long term (current) drug therapy
CPT/HCPCS: 36415; 80053; 83605; 83735; 85025; 87040; 99219; 99232; 99239; A9270-GY; G0378; J1650; J2543; J3475